=== PATIENT | female | born 1955 | race Caucasian/White ===

== ENCOUNTER 2019-02-15 10:33 | Emergency (ER) | payer SELFPAY ==
[2019-02-15] MEDS ORDERED: ASPIRIN 81 MG TABLET, CHEWABLE PO ONE (10:52)
--- NOTE | 2019-02-15 11:01 | ER Document Report ---
ED Medical Screen (RME) - General Chief Complaint: Chest Pain Stated Complaint: CHEST PAIN,WEAKNESS,NUMBNESS ON LEFT SIDE Time Seen by Provider: 02/15/19 10:52 Mode of Arrival: Ambulatory Information source: Patient Notes: This 63-year-old female presents emergency department with complaints of midsternal left-sided chest pain that comes and goes for the past month. She describes it as sharp chest pain that makes her heart feels like it is flip- flopping. She reports she has left arm pain with this. She also reports she feels short of breath. Denies fever vomiting diarrhea. Reports she is eating drinking as normal. She reports the chest pain does not make her nauseated she does not become diaphoretic. She reports her mother had a history of angina. She reports she has a history of high blood pressure but she is not taking medications at this time. EKG shows sinus rhythm no ST elevation no T wave inversion. No pain with palpation to her chest. Respiratory rate is even un labored. I have greeted and performed a rapid initial assessment of this patient. A comprehensive ED assessment and evaluation of the patient, analysis of test results and completion of the medical decision making process will be conducted by additional ED providers. Dictation of this chart was performed using voice recognition software; therefore, there may be some unintended grammatical errors. TRAVEL OUTSIDE OF THE [place] IN LAST 30 DAYS: No - Related Data Allergies/Adverse Reactions: No Known Allergies Allergy (Verified 02/15/19 10:34) Past Medical History - Social History Chew tobacco use (# tins/day): No Frequency of alcohol use: None Drug Abuse: None Renal/ Medical History: Denies: Hx Peritoneal Dialysis Physical Exam - Vital signs Vitals: Temp Pulse Resp BP Pulse Ox 97.9 F 81 16 126/60 H 90 L 02/15/19 10:37 02/15/19 10:37 02/15/19 10:37 02/15/19 10:37 02/15/19 10:37 Course - Vital Signs Vital signs: Temp Pulse Resp BP Pulse Ox 97.9 F 81 16 126/60 H 90 L 02/15/19 10:37 02/15/19 10:37 02/15/19 10:37 02/15/19 10:37 02/15/19 10:37
--- NOTE | 2019-02-15 11:12 | EKG REPORT ---
SEVERITY:- NORMAL ECG - SINUS RHYTHM : Confirmed by: Caitie Buenrostro MD 15-Feb-2019 11:11:26
[2019-02-15 12:21] LABS: APPEARANCE,URINE SLIGHTLY-CLOUDY; BILIRUBIN,URINE NEGATIVE (NEGATIVE); COLOR,URINE YELLOW; GLUCOSE, URINE NEGATIVE (NEGATIVE); KETONES,URINE TRACE mg/dL (NEGATIVE); LEUKOCYTE ESTERASE,URINE SMALL (NEGATIVE); NITRITE,URINE NEGATIVE (NEGATIVE); PROTEIN,URINE NEGATIVE (NEGATIVE); URINE SPECIFIC GRAVITY 1.014; UROBILINOGEN,URINE NEGATIVE mg/dL (<2.0)
[2019-02-15 12:22] LABS: ABSOLUTE EOSINOPHILS # (AUTO) 0.2 10^3/uL (0.0-0.6); ABSOLUTE LYMPHOCYTES (AUTO) 1.8 10^3/uL (0.5-4.7); ABSOLUTE MONOCYTES (AUTO) 0.3 10^3/uL (0.1-1.4); ABSOLUTE NEUT (AUTO) 3.7 10^3/uL (1.7-8.2); BASOPHILS % (AUTO) 0.4 % (0-2); EOSINOPHILS % (AUTO) 3.8 % (0-6); HEMATOCRIT 40.5 % (36.0-47.0); HEMOGLOBIN 13.6 g/dL (12.0-15.5); LYMPHOCYTES % (AUTO) 29.5 % (13-45); MEAN CORPUSCULAR HEMOGLOBIN 29.9 pg (27.0-33.4); MEAN CORPUSCULAR HGB CONC 33.7 g/dL (32.0-36.0); MEAN CORPUSCULAR VOLUME 89 fl (80-97); MONOCYTES % (AUTO) 5.7 % (3-13); PLATELET COUNT 359 10^3/uL (150-450); RED BLOOD COUNT 4.56 10^6/uL (3.72-5.28); RED CELL DISTRIBUTION WIDTH 13.5 % (11.5-14.0); SEGMENTED NEUTROPHILS % (AUTO) 60.6 % (42-78); TOTAL CELLS COUNTED % (AUTO) 100 %; WHITE BLOOD COUNT 6.1 10^3/uL (4.0-10.5)
[2019-02-15 12:39] LABS: ALBUMIN 4.7 g/dL (3.5-5.0); ALKALINE PHOSPHATASE 102 U/L (38-126); ANION GAP 8 (5-19); ASPARTATE AMINO TRANSFERASE 32 U/L (14-36); BILIRUBIN,DIRECT 0.2 mg/dL (0.0-0.4); BILIRUBIN,TOTAL 0.5 mg/dL (0.2-1.3); BLOOD UREA NITROGEN 10 mg/dL (7-20); CALCIUM 9.8 mg/dL (8.4-10.2); CARBON DIOXIDE 29 mmol/L (22-30); CHLORIDE 105 mmol/L (98-107); CREATINE KINASE 41 U/L (30-135); GLUCOSE 99 mg/dL (75-110); POTASSIUM 5.1 mmol/L (3.6-5.0); TOTAL PROTEIN 8.4 g/dL (6.3-8.2)
--- NOTE | 2019-02-15 13:49 | RADIOLOGY REPORT (SQ) ---
EXAM DESCRIPTION: CHEST 2 VIEWS COMPLETED DATE/TIME: 02/15/2019 1:31 pm REASON FOR STUDY: chest pain COMPARISON: None. EXAM PARAMETERS: NUMBER OF VIEWS: two views TECHNIQUE: Digital Frontal and Lateral radiographic views of the chest acquired. RADIATION DOSE: NA LIMITATIONS: none FINDINGS: LUNGS AND PLEURA: No opacities, masses or pneumothorax. No pleural effusion. MEDIASTINUM AND HILAR STRUCTURES: No masses or contour abnormalities. HEART AND VASCULAR STRUCTURES: Heart normal size. No evidence for failure. BONES: No acute findings. HARDWARE: Clips in the left axilla. OTHER: No other significant finding. IMPRESSION: NO ACUTE RADIOGRAPHIC FINDING IN THE CHEST. TECHNICAL DOCUMENTATION: JOB ID: [id number] [employer]- All Rights Reserved Reading location - IP/workstation name: [email or web address]
--- NOTE | 2019-02-15 15:27 | ER Document Report ---
ED General - General Chief Complaint: Chest Pain Stated Complaint: CHEST PAIN,WEAKNESS,NUMBNESS ON LEFT SIDE Time Seen by Provider: 02/15/19 10:52 Mode of Arrival: Ambulatory Notes: 63-year-old female presents the emergency department complaining of intermittent left-sided chest pain associated with shortness of breath and fatigue as well as left-sided numbness going on for the past 1 to 2 months. States that it is not worsening and it is not improving it is simply staying fairly constant for the past 1 to 2 months. States is worse in the morning and then improves with activity and as she walks around. States she can walk up one flight of steps without developing any chest pain although she does feel somewhat short of breath. Patient states that she lives in [facility] 8 months at a year and does not have [facility] insurance so she came in today to have it checked out before she returns to [facility] in April. Patient has a strong family history of cardiac disease, mother had a bypass surgery in her 50s and dad from a heart attack in his 40s. Patient also had a brother who from heart disease in his 40s to 50s. Patient had stress test at [facility] several years ago but has not seen a primary care physician in a few years due to lack of insurance. Patient was recently diagnosed by a [facility] physician with high blood pressure and is taking metoprolol. Recently had a cholesterol checked but does not know what it is. TRAVEL OUTSIDE OF THE [place] IN LAST 30 DAYS: No - Related Data Allergies/Adverse Reactions: No Known Allergies Allergy (Verified 02/15/19 10:34) Past Medical History - General Information source: Patient - Social History Smoking Status: Never Smoker Chew tobacco use (# tins/day): No Frequency of alcohol use: None Drug Abuse: None Family History: CAD Patient has suicidal ideation: No Patient has homicidal ideation: No - Past Medical History Cardiac Medical History: Reports: Hx Hypertension Renal/ Medical History: Denies: Hx Peritoneal Dialysis Past Surgical History: Reports: Hx Breast Surgery - LEFT BREAST LUMPECTOMY Review of Systems - Review of Systems Constitutional: See HPI, Weakness EENT: No symptoms reported Cardiovascular: See HPI Respiratory: See HPI -: Yes All other systems reviewed and negative Physical Exam - Vital signs Vitals: Temp Pulse Resp BP Pulse Ox 97.9 F 81 16 126/60 H 90 L 02/15/19 10:37 02/15/19 10:37 02/15/19 10:37 02/15/19 10:37 02/15/19 10:37 Interpretation: Normal - Notes Notes: GENERAL: Alert, interacts well. No acute distress. HEAD: Normocephalic, atraumatic EYES: Pupils equal, round and reactive to light, extraocular movements intact. ENT: Oral mucosa moist, tongue midline. NECK: Full range of motion, supple, trachea midline. LUNGS: Clear to auscultation bilaterally, no wheezes, rales or rhonchi, no respiratory distress. HEART: Regular rate and rhythm, no murmurs, gallops, rubs. ABDOMEN: Soft, nontender, nondistended, bowel sounds present in all 4 quadrants. EXTREMITIES: Moves all 4 extremities spontaneously, no edema, radial and dorsalis pedis pulses 2/4 bilaterally. No cyanosis. NEUROLOGICAL: Alert and oriented x3, normal speech. PSYCH: Normal mood, normal affect. SKIN: Warm, Dry, normal turgor, no rashes or lesions noted. Course - Re-evaluation Re-evalutation: 02/15/19 15:28 CBC unremarkable, CMP shows slight low potassium at 5.1 otherwise unremarkable, cardiac enzymes negative, lipase normal, urinalysis shows small leukocyte esterase, 3 squamous epithelial cells, suspect this is contaminated. EKG is nonischemic, chest x-ray shows no acute process. I reviewed the patient's cholesterol results that she has with her and they reveal elevated LDL, elevated triglycerides, slightly low HDL and high total cholesterol. Discussed with the patient that she has been having this exact same pain unch anging for the past 1 to 2 months, is not accelerating, she is not having any increasing shortness of breath. There is no change today. Patient states she only came in because she did not know how else to access the medical system. Discussed with patient that we can either try and admit her if she is going to be returning to [facility] shortly otherwise we can try and get her set up for outpatient follow-up. Patient will not be returning to [facility] until April. At this point I am going to give her the names of several certified dental assistant and also give her name to Andrew Bansal the high risk case manager for the emergency department to see if we can find her other resources. Patient will be discharged to home. I have asked her to try and set up a stress test for sometime the next month. If her pain worsens at any point she should return to the emergency department and we will admit her Aguirre or full cardiac rule out. - Vital Signs Vital signs: Temp Pulse Resp BP Pulse Ox 97.9 F 81 15 121/70 96 02/15/19 10:37 02/15/19 10:37 02/15/19 14:01 02/15/19 14:00 02/15/19 14:01 - Laboratory Result Diagrams: 02/15/19 11:47 02/15/19 11:47 Laboratory results interpreted by me: 02/15/19 02/15/19 11:47 11:47 Potassium 5.1 H Total Protein 8.4 H Urine Ketones TRACE H Urine Blood SMALL H Ur Leukocyte Esterase SMALL H Urine Ascorbic Acid 40 H - EKG Interpretation by Me Additional EKG results interpreted by me: 02/15/19 15:30 EKG shows sinus rhythm at a rate of 74, normal axis, normal intervals, no ST segment elevations or depressions, no T wave inversions per my interpretation. Discharge - Discharge Clinical Impression: Intermittent left-sided chest pain Condition: Stable Disposition: HOME, SELF-CARE Additional Instructions: Today we did not find any signs of a heart attack however I am concerned that your pain may be coming from your heart. You need a thorough work-up by a certified dental assistant as an outpatient to include a stress test. Sometimes primary care physicians can do this as well. I have given you the names of 3 different certified dental assistant that you could call to try and arrange this follow-up. If your chest pain worsens at any point I want you to return to the emergency department immediately. Your cholesterol was elevated. Please bring that blood work to the certified dental assistant office with you. Referrals: RONALDO AGUILAR MD [ACTIVE STAFF] - Follow up as needed KEITH FORD MD [ACTIVE STAFF] - Follow up as needed SHORTY NAJERA MD [ACTIVE STAFF] - Follow up as needed
[2019-02-15 16:02] VITALS: BP 104/60
== END 2019-02-15 16:20 | disposition home or self-care (01) ==
LOC: ER 10:33
DX: R07.9 Chest pain, unspecified (principal); R53.1 Weakness; R20.0 Anesthesia of skin; R06.02 Shortness of breath; I10 Essential (primary) hypertension; Z79.899 Other long term (current) drug therapy
CPT/HCPCS: 36415; 71046; 80053; 81001; 82550; 83690; 84484; 85025; 93005; 93010; 99285